=== PATIENT | female | born 1980 | race Caucasian/White ===

== ENCOUNTER → 2016-12-26 | Outpatient (CLI) | payer OTHER ==
[2016-12-26 11:53] LABS: CH 31.4; CHCM 34.2; HCT 37.8 % (34.0-46.0); HGB 12.8 gm/dL (11.4-16.0); MCH 31.2 pg (25.0-35.0); MCHC 33.8 g/dL (31.0-37.0); MCV 92.4 fL (80.0-100.0); Mean Platelet Volume 8.6; RBC 4.09 m/uL (3.80-5.40); RDW 13.2 % (11.5-15.5); WBC 9.2 k/uL (3.8-10.6)
[2016-12-26 13:27] LABS: Glucose 78 mg/dL (74-99); Non-African American GFR(MDRD) >60 (>60 ml/min/1.73 sqM)
[2016-12-26 13:59] LABS: Hepatitis B Surface Ag Index 0.06
[2016-12-27 11:29] LABS: Treponemal Ab Reactive (Non-Reactive)
== END | disposition home or self-care (01) ==
LOC: LABWHC1 11:15
PROVIDERS: ATTEND Obstetrics & Gynecology
DX: Z34.81 Encounter for supervision of other normal pregnancy, first trimester (principal); Z3A.00 Weeks of gestation of pregnancy not specified
CPT/HCPCS: 36415; 82565; 82947; 85027; 86762; 86780; 86850; 86900; 86901; 87340; 87491; 87591

== ENCOUNTER → 2017-01-09 | Outpatient (CLI) | payer OTHER ==
--- NOTE | 2017-01-09 11:42 | US ---
EXAMINATION TYPE: US OB anatomy transabd DATE OF EXAM: 01/09/2017 11:26 AM COMPARISON: NONE HISTORY: O36.62XO Large For Dates TECHNIQUE: OBTA EXAM MEASUREMENTS: GESTATIONAL AGE / DATING Physician Established: (19 weeks/0 days) EDC: 06/05/2017 Dates by LMP: unknown Dates by First Scan: BRIDAL GOWN FITTER Dates by Current Scan for: (17 weeks/3 days) EDC: 06/16/2017 SURVEY IUP: Single PLACENTA: Posterior PREVIA: No previa FRANSISCO: 9.9 cm low normal, assessed twice CERVICAL LENGTH (transabdominal: norm > 3.0cm): 3.3 cm BIOMETRY PRESENTATION: Variable, breech at beginning of scan and vertex by the end BPD: 3.7 cm 17 weeks / 1 days HC: 13.8 cm 17 weeks / 1 days AC: 13.1 cm 18 weeks / 4 days FL: 2.3 cm 17 weeks / 0 days ESTIMATED WEIGHT IN GRAMS: 208 grams ESTIMATED WEIGHT IN LBS/OZS: 0 lbs. 7 oz. WEIGHT PERCENTAGE BASED ON ESTABLISHED DATE: 3 % HC/AC: 1.0 Normal FL/AC: 17.8 Normal HEART RATE: 141 bpm RHYTHM: Normal ANATOMY SEEN (within normal limits): * Lateral Vent (< 1 cm) 0.4 cm * Cisterna Magna (< 1.1 cm) 0.2 cm * Nuchal Fold (< 0.6 cm) 0.3 cm * Cerebellum (varies with age) 1.7 cm Choroid Plexus (bilateral) Midline Falx Cavus Septi Pellucidi Stomach Situs Diaphragm Kidneys (bilateral) Bladder Cord Insert Three Vessel Cord Longitudinal Spine Transverse Spine Arms (bilateral) Legs (bilateral) ANATOMY NOT SEEN: attempted but due to age not seen clearly Leona was 2nd tech to attempt Four Chamber Heart Outflow tracts: LVOT/RVOT Nose / Lips notified of low weight % and FRANSISCO IMPRESSION: Single viable intrauterine with weight percentage estimated at 3%. Limited evaluation of va rious structures as noted above.
== END | disposition home or self-care (01) ==
LOC: RADUSWWP 10:28
PROVIDERS: ATTEND Obstetrics & Gynecology
DX: O36.62X0 Maternal care for excessive fetal growth, second trimester, not applicable or unspecified (principal); Z3A.17 17 weeks gestation of pregnancy
CPT/HCPCS: 76811

== ENCOUNTER → 2017-04-07 | Outpatient (CLI) | payer OTHER ==
[2017-04-07 12:33] LABS: CH 29.6; CHCM 33.2; HCT 33.2 % (34.0-46.0); HDW 2.92; HGB 11.3 gm/dL (11.4-16.0); MCH 30.6 pg (25.0-35.0); MCV 89.8 fL (80.0-100.0); Mean Platelet Volume 8.8; RBC 3.69 m/uL (3.80-5.40); RDW 12.3 % (11.5-15.5); WBC 11.9 k/uL (3.8-10.6)
== END | disposition home or self-care (01) ==
LOC: LABWHC1 11:03
PROVIDERS: ATTEND Obstetrics & Gynecology
DX: Z34.83 Encounter for supervision of other normal pregnancy, third trimester (principal)
CPT/HCPCS: 36415; 82950; 85027

== ENCOUNTER 2017-05-07 14:24 | Outpatient (CLI) | payer OTHER ==
[2017-05-07 15:34] VITALS: BP 121/73; PULSE 79; RESP 18; TEMP 96.5
--- NOTE | 2017-05-10 08:43 | P.MSEPDOC ---
Presenting Problems - Arrival Data Date of Arrival on Unit: 05/07/17 Time of Arrival on Unit: 14:24 Mode of Transport: Ambulatory - Complaint OB-Reason for Admission/Chief Complaint: Pain Comment: patient rates her pain 5/10 and states it is a sharp pain right above her belly button. states it is constant but gets worse when the baby moves. Medical History - Information : 2 Para: 1 Term: 1 : 0 Abortions: Spontaneous or Elective: 0 Number of Living Children: 1 - Gestational Age Expected Date of Delivery: 06/16/17 Gestational Age by YANCY (wks/days): 34 Weeks and 5 Days Review of Systems - Review of Systems Constitutional: No problems Breast: No problems ENT: No problems Cardiovascular: No problems Respiratory: No problems Gastrointestinal: No problems Genitourinary: No problems Musculoskeletal: No problems Neurological: No problems Skin: No problems Vital Signs - Temperature Temperature: 96.5 F Temperature Source: Temporal Artery Scan - Pulse Right Pulse Rate: 79 Pulse Assessment Method: Pulse Oximetry - Respirations Respiratory Rate: 18 Oxygen Delivery Method: Room Air O2 Sat by Pulse Oximetry: 98 - Blood Pressure Right Arm Blood Pressure: 121/73 Blood Pressure Mean: 89 Blood Pressure Source: Automatic Cuff Medical Screen Scoring (Pre) - Cervical Exam Dilation: Exam Deferred Effacement: Exam Deferred - Uterine Contractions Frequency: N/A Duration: N/A Intensity: N/A - Maternal Vital Signs Maternal Temperature: N/A Maternal Blood Pressure: N/A Signs of Preeclampsia: N/A Maternal Respirations: N/A - Maternal Trauma Maternal Trauma: N/A - Assessment Baseline FHR: 140 Heart Rate - NICHD Category: Category I (Normal) = 0 NST: Reactive Position: N/A Station: N/A - Total Score Total Score (Pre): 0 - Level of Risk Level of Risk: Low (0-5) Physician Notification (Pre) - Physician Notified Physician Notified Date: 05/07/17 Physician Notified Time: 15:16 Physician/Practitioner Notifed:: Dr Humphrey Spoke With: Telephone New Order Received: Yes Disposition - Disposition OB Disposition: Discharge to home Discharge Date: 05/07/17 Discharge Time: 15:25 I agree with the RN Medical Screening Exam: Yes Risk & Benefit of care provided described in d/c instruction: Yes Diagnosis: UNSPECIFIED ABDOMINAL PAIN
== END 2017-05-07 15:25 | disposition home or self-care (01) ==
LOC: FBPOP 14:24
PROVIDERS: ATTEND Obstetrics & Gynecology
DX: O99.89 Other specified diseases and conditions complicating pregnancy, childbirth and the puerperium (principal); R10.9 Unspecified abdominal pain; Z3A.34 34 weeks gestation of pregnancy
CPT/HCPCS: 59025; G0463; 99213

== ENCOUNTER 2017-06-09 06:00 | Inpatient (IN) | payer OTHER ==
[2017-06-09] MEDS ORDERED: TERBUTALINE 1 MG/ML VIAL SQ PRN (06:24)
[2017-06-09] MEDS ORDERED: OXYTOCIN 10 UNIT/ML 1 ML VIAL IM PRN (06:24)
[2017-06-09] MEDS ORDERED: LIDOCAINE 1% (PF) 10 MG/ML (30 ML SDV) SQ PRN (06:24)
[2017-06-09] MEDS ORDERED: CARBOPROST TROMETHAMINE 250 MCG/ML 1 ML AMP IM PRN (06:24)
[2017-06-09] MEDS ORDERED: METHYLERGONOVINE 0.2 MG/ML 1 ML AMP IM PRN (06:24)
[2017-06-09] MEDS ORDERED: OXYTOCIN 20 UNITS/1000 ML NS 1,000 ML IV SCH (06:30)
[2017-06-09] MEDS: LACTATED RINGERS 1,000 ML IV SCH ×2 (06:33→11:55)
[2017-06-09 07:11] LABS: Basophils % (A) 0 %; CH 27.1; CHCM 31.8; Eosinophils # (A) 0.3 k/uL (0-0.7); Eosinophils % (A) 2 %; HCT 33.8 % (34.0-46.0); HGB 10.9 gm/dL (11.4-16.0); Hypochromasia Slight; Luc # (Auto) 0.21; Luc % (Auto) 2; Lymphocytes # (A) 1.8 k/uL (1.0-4.8); Lymphocytes % (A) 14 %; MCH 27.6 pg (25.0-35.0); MCHC 32.3 g/dL (31.0-37.0); MCV 85.5 fL (80.0-100.0); Mean Platelet Volume 8.7; Monocytes # (A) 0.7 k/uL (0-1.0); Monocytes % (A) 6 %; Neutrophils # (A) 9.7 k/uL (1.3-7.7); Neutrophils % (A) 76 %; RBC 3.96 m/uL (3.80-5.40); RDW 13.8 % (11.5-15.5); WBC 12.7 k/uL (3.8-10.6); WBC (Perox) 12.93
[2017-06-09] MEDS ORDERED: BUPIVACAINE (PF) 0.25% 30 ML VIAL ONE (11:11)
[2017-06-09] MEDS ORDERED: SODIUM CHLORIDE 0.9% 100 ML BAG ONE (11:11)
[2017-06-09] MEDS ORDERED: fentaNYL (PF) 50 MCG/ML 5 ML AMP ONE (11:11)
[2017-06-09] MEDS ORDERED: LANOLIN CREAM 5 GM TUBE TOPICAL PRN (17:15)
[2017-06-09] MEDS ORDERED: ZOLPIDEM 5 MG TAB PO PRN (17:15)
[2017-06-09] MEDS ORDERED: WITCH HAZEL 1 EACH MED..PAD TOPICAL PRN (17:15)
[2017-06-09] MEDS ORDERED: HYDROCORTISONE 2.5% RECTAL CREAM 30 GM TUBE RECTAL PRN (17:15)
[2017-06-09] MEDS ORDERED: ACETAMINOPHEN TAB 325 MG TAB PO PRN (17:15)
[2017-06-09] MEDS ORDERED: diphenhydrAMINE 50 MG CAP PO PRN (17:15)
[2017-06-09] MEDS ORDERED: BENZOCAINE/MENTHOL SPRAY 1 GM/SPRAY AEROSOL TOPICAL PRN (17:15)
[2017-06-09] MEDS ORDERED: diphenhydrAMINE 25 MG CAP PO PRN (17:15)
[2017-06-09] MEDS ORDERED: IBUPROFEN 600 MG TAB PO PRN (17:15)
[2017-06-09] MEDS ORDERED: diphenhydrAMINE 50 MG/ML 1 ML VIAL IVP PRN ×2 (17:15)
[2017-06-09] MEDS ORDERED: SIMETHICONE 80 MG CHEWABLE PO PRN (17:15)
--- NOTE | 2017-06-09 17:20 | P.HPOB ---
History of Present Illness H&P Date: 06/09/17 Chief Complaint: IUP term: induction of labor Ivory is a 36-year-old at 40 weeks gestation who arrives for induction of labor. Her course was significant for a positive treponemal test however confirmatory studies showed it to be nonreactive otherwise she is seen [facility] for same and 4 advanced maternal age. She is getting nonstress tests for advanced maternal age. She has done well with the . On physical exam vital signs are stable and afebrile. Heart regular, lungs clear, extremities without pain. She is dilated 2 cm 70% effaced -3 station. Artificial rupture of membranes was performed and clear fluid is noted. heart tones are noted to be in the 130s to 140s and are reactive. Assessment intrauterine at term. Plan expect spontaneous vaginal delivery. She does anticipate using an epidural for analgesia. Past Medical History Past Medical History: Thyroid Disorder Additional Past Medical History / Comment(s): thyroid nodules History of Any Multi-Drug Resistant Organisms: None Reported Additional Past Surgical History / Comment(s): ASHISH 2004 Past Anesthesia/Blood Transfusion Reactions: No Reported Reaction Past Psychological History: No Psychological Hx Reported Smoking Status: Former smoker Past Alcohol Use History: None Reported Past Drug Use History: None Reported - Past Family History Mother Family Medical History: No Reported History Medications and Allergies Home Medications Medication Instructions Recorded Confirmed Type No Known Home Medications [No 05/07/17 06/09/17 History Known Home Medications] Allergies Allergy/AdvReac Type Severity Reaction Status Date / Time No Known Allergies Allergy Verified 06/09/17 06:24 Exam Osteopathic Statement: *. No significant issues noted on an osteopathic structural exam other than those noted in the History and Physical/Consult. - Vital Signs Vital signs: Vital Signs Temp Pulse Resp BP Pulse Ox 06/09/17 06:27 96.8 F L 95 16 114/73 97 Intake and Output 06/09/17 06/09/17 06/09/17 06:59 14:59 22:59 Output Total 250 Balance -250 Output: Urine 250 Straight 250 Other: Weight 87.09 kg Results Result Diagrams: 06/09/17 06:20 Abnormal Lab Results - Last 24 Hours (Table) 06/09/17 Range/Units 06:20 WBC 12.7 H (3.8-10.6) k/uL Hgb 10.9 L (11.4-16.0) gm/dL Hct 33.8 L (34.0-46.0) % Neutrophils # 9.7 H (1.3-7.7) k/uL
--- NOTE | 2017-06-09 17:21 | P.PROBDLV ---
Vaginal Delivery Note - . Vaginal Delivery Note: Patient progressed to complete and pushed with spontaneous vaginal delivery of a viable female over a first repair laceration. On delivery of the head a nuchal cord 2 was added and easily reduced. Anterior shoulders then delivered gentle downward traction followed by delivery of the posterior shoulder and remainder of the baby baby was delivered from left occiput anterior position. Once baby was delivered mouth nares were bulb suctioned and baby was placed on mother's abdomen where the umbilical cord was clamped cut usual fashion. Nursery personnel was then present to assume care. Placenta was then delivered intact Pitocin was added to the IV. scores were 8 and 9 at one and 5 minutes respectively and the weight was 8 lbs. 6 oz. Both mother and baby currently appear stable.
[2017-06-09] MEDS: SENNOSIDES-DOCUSATE SODIUM 1 EACH TAB PO SCH (20:34)
--- NOTE | 2017-06-10 10:13 | P.DS ---
Providers Date of admission: 06/09/17 06:14 Expected date of discharge: 06/10/17 Attending physician: Darian Gamino Primary care physician: Stated None Hospital Course: Ivory is doing very well day 1. She is ambulating, voiding, and she is tolerating her diet. She voices no complaints. Her vital signs are stable and she is afebrile. Heart regular, lungs clear, extremities without pain. Assessment day 1. Plan discharged home follow up with me in 6 weeks. Discharge instructions were thoroughly reviewed and all questions are answered for her prior to her discharge. Patient Condition at Discharge: Good Plan - Discharge Summary New Discharge Prescriptions: No Action No Known Home Medications [No Known Home Medications] Discharge Medication List No Known Home Medications [No Known Home Medications] 05/07/17 [History] Follow up Appointment(s)/Referral(s): Darian Gamino DO [Doctor of Osteopathic Medicine] - 6 Weeks Activity/Diet/Wound Care/Special Instructions: No heavy lifting, limit stairs and driving, and pelvic rest. If any high temperatures, heavy bleeding, or severe pain call my office Discharge Disposition: HOME SELF-CARE
[2017-06-10] MEDS: SENNOSIDES-DOCUSATE SODIUM 1 EACH TAB PO SCH (15:37)
[2017-06-10 15:42] VITALS: BP 118/80; PULSE 82; RESP 16; TEMP 97.8
== END 2017-06-10 17:30 | disposition home or self-care (01) | DRG 775 ==
LOC: 4FBP 06:14
PROVIDERS: ADMIT Obstetrics & Gynecology; ATTEND Obstetrics & Gynecology
PROC: 10E0XZZ Delivery of Products of Conception, External Approach (ICD-10-PCS; principal; 2017-06-09)
PROC: 0HQ9XZZ Repair Perineum Skin, External Approach (ICD-10-PCS; 2017-06-09)
PROC: 3E033VJ Introduction of Other Hormone into Peripheral Vein, Percutaneous Approach (ICD-10-PCS; 2017-06-09)
PROC: 10907ZC Drainage of Amniotic Fluid, Therapeutic from Products of Conception, Via Natural or Artificial Opening (ICD-10-PCS; 2017-06-09)
PROC: 00HU33Z Insertion of Infusion Device into Spinal Canal, Percutaneous Approach (ICD-10-PCS; 2017-06-09)
PROC: 3E0R3CZ (ICD-10-PCS; 2017-06-09)
DX: O69.81X0 Labor and delivery complicated by cord around neck, without compression, not applicable or unspecified (principal); E04.2 Nontoxic multinodular goiter; O99.283 Endocrine, nutritional and metabolic diseases complicating pregnancy, third trimester; O70.0 First degree perineal laceration during delivery; Z37.0 Single live birth; Z87.891 Personal history of nicotine dependence; Z3A.40 40 weeks gestation of pregnancy
CPT/HCPCS: 85025; 88307

== ENCOUNTER → 2017-08-02 | Outpatient (CLI) | payer OTHER | END | disposition home or self-care (01) | LOC: LABWHC1 10:04 | PROVIDERS: ATTEND Obstetrics & Gynecology | DX: N91.2 Amenorrhea, unspecified (principal) | CPT/HCPCS: 36415; 84702 ==

== ENCOUNTER → 2022-11-28 | Outpatient (CLI) | payer BC ==
--- NOTE | 2022-11-29 08:58 | MM ---
Reason for Exam: Screening (asymptomatic). Baseline mammogram. Patient History: Menarche at age 17. First Full-Term at age 32. Late child-bearing (after 30). Patient used Hormonal Contraceptives for 12 years. Currently using Unspecified Hormone, starting at age 37. Last menstrual period: 11/27/2022 Risk Values: Linnea 5 year model risk: 0.8%. NCI Lifetime model risk: 12.2%. Prior Study Comparison: Patient's first Mammogram. No prior studies available for comparison. Tissue Density: The breast tissue is heterogeneously dense. This may lower the sensitivity of mammography. Findings: Analyzed By CAD. There is no suspicious group of microcalcifications within either breast. Asymmetry demonstrated within the left breast in the superior aspect middle depth on the MLO view. Additional asymmetry demonstrated within the right breast inferior aspect middle depth on the MLO view. Overall Assessment: Incomplete: need additional imaging evaluation, BI-RAD 0 Management: Diagnostic Mammogram of both breasts. A clinical breast exam by your physician is recommended on an annual basis and results should be correlated with mammographic findings. [facility] will attempt to contact patient to return for supplemental views and ultrasound if indicated. Electronically signed and approved by: Kiran Brantley D.O.
== END | disposition home or self-care (01) ==
LOC: RADMAMWWP 09:17
PROVIDERS: ATTEND Obstetrics & Gynecology
DX: Z12.31 Encounter for screening mammogram for malignant neoplasm of breast (principal)
CPT/HCPCS: 77063; 77067

== ENCOUNTER → 2022-11-30 | Outpatient (CLI) | payer BC ==
--- NOTE | 2022-11-30 14:38 | USB ---
Reason for Exam: Additional evaluation requested from abnormal screening. Patient History: Menarche at age 17. First Full-Term at age 32. Late child-bearing (after 30). Patient used Hormonal Contraceptives for 12 years. Currently using Unspecified Hormone, starting at age 37. Risk Values: Linnea 5 year model risk: 0.8%. NCI Lifetime model risk: 12.2%. Technique: Method: Targeted. Prior Study Comparison: 11/28/2022 Bilateral MG 3D screening mammo w/cad, [facility]. Findings: The upper outer quadrant of the left breast, the lower section of the breast of the right breast, the axilla of both breasts and the retroareolar of both breasts were scanned. Lobulated complex cystic lesion right 4:00 breast 6 cm from the nipple measuring 1.3 x 1.0 x 1.3 cm. Tissue diagnosis is recommended. No additional right breast lesions are seen. No adenopathy. Small complex cystic lesion left breast 1:00 position 7 cm from the nipple measures 1 x 0.4 cm. Six-month follow-up is advised. Overall Assessment: Suspicious, BI-RAD 4 Management: Aspiration of the right breast. A clinical breast exam by your physician is recommended on an annual basis and results should be correlated with mammographic findings. This exam should not preclude additional follow-up of suspicious palpable abnormalities. Results were given to the patient verbally at the time of exam. Electronically signed and approved by: Nahid Wells M.D. Radiologis
--- NOTE | 2022-12-01 09:57 | MM ---
Reason for Exam: Additional evaluation requested from abnormal screening. Last screening mammogram was performed less than 1 month ago. Patient History: Menarche at age 17. First Full-Term at age 32. Late child-bearing (after 30). Patient used Hormonal Contraceptives for 12 years. Currently using Unspecified Hormone, starting at age 37. Risk Values: Linnea 5 year model risk: 0.8%. NCI Lifetime model risk: 12.2%. Prior Study Comparison: 11/28/2022 Bilateral MG 3D screening mammo w/cad, [facility]. Tissue Density: The breast tissue is heterogeneously dense. This may lower the sensitivity of mammography. Findings: Analyzed By CAD. Persistent asymmetric nodular density right 6:00 position 6.6 cm from the nipple and upper outer left breast 7.2 cm from the nipple. Ultrasound is advised at both sites. Overall Assessment: Incomplete: need additional imaging evaluation, BI-RAD 0 Management: Diagnostic Breast Ultrasound of both breasts. A clinical breast exam by your physician is recommended on an annual basis and results should be correlated with mammographic findings. This exam should not preclude additional follow-up of suspicious palpable abnormalities. Results were given to the patient verbally at the time of exam. Electronically signed and approved by: Nahid Wells M.D. Radiologis
== END | disposition home or self-care (01) ==
LOC: RADMAMWWP 13:40
PROVIDERS: ATTEND Obstetrics & Gynecology
DX: R92.8 Other abnormal and inconclusive findings on diagnostic imaging of breast (principal)
CPT/HCPCS: 77062; 77066

== ENCOUNTER → 2023-01-02 | Day surgery (SDC) | payer BC ==
--- NOTE | 2023-01-09 10:14 | MM ---
Reason for Exam: Post Procedure Mammogram. Last screening mammogram was performed 1 month(s) ago. Patient History: Menarche at age 17. First Full-Term at age 32. Late child-bearing (after 30). Patient used Hormonal Contraceptives for 12 years. Currently using Unspecified Hormone, starting at age 37. Risk Values: Linnea 5 year model risk: 0.8%. NCI Lifetime model risk: 12.2%. Prior Study Comparison: 11/28/2022 Bilateral MG 3D screening mammo w/cad, [facility]. 11/30/2022 Bilateral MG 3D work up w/cad [facility], [facility]. Tissue Density: Right: The breast tissue is heterogeneously dense. This may lower the sensitivity of mammography. Pathology Description: Location: 4 o'clock, lower outer quadrant, anterior. Cores: 2 Gauge: 12 The procedure of ultrasound guided core biopsy was explained to the patient. Benefits, alternatives, and risks were discussed. An informed consent was then obtained. The patient was placed in supine positioning for imaging and for the procedure. Preprocedure ultrasound redemonstrates oval lobulated hypoechoic roughly 11 mm lesion at 4:00 position 6 cm distance from nipple in the right breast. The overlying skin was prepped and draped in usual sterile fashion. Lidocaine is used as anesthetic into the skin and subcutaneous tissue up to area of concern in the right breast. Under ultrasound guidance, a vacuum assisted biopsy gun device was used to obtain 2 core samples. Following this, a biopsy clip was left in lesion. The patient tolerated the procedure well without any immediate complication. The patient was kept in the radiology department for short stay after the procedure and then discharged home in stable condition. Postprocedure mammogram: The patient was transferred to mammography for physician ordered post procedure mammogram for clip placement verification. Clip is visualized. Impression: Successful, uncomplicated ultrasound guided core biopsy of area of concern in the right breast, full pathology results to follow. Low to intermediate index of suspicion noted at time of procedure. Pathology Results: Result: Benign, Fibroadenoma. RIGHT BREAST, 4:00, NEEDLE CORE BIOPSY: Fibroadenoma. Overall Assessment: Benign Assessment: MG diagnostic mammo RT wo CAD - Right: Benign, BI-RAD 2. Management: Diagnostic Breast Ultrasound of the right breast in 6 months. Electronically signed and approved by: Jalil Smith M.D.
== END ==
LOC: RADUSWWP 12:52
PROVIDERS: ATTEND Surgery
DX: D24.1 Benign neoplasm of right breast (principal)
CPT/HCPCS: 88305; 77065; 19083; A4648